=== PATIENT | female | born 1985 ===

== ENCOUNTER 2017-05-07 08:32 | Emergency (ER) | payer OTHER ==
[2017-05-07 08:38] VITALS: RESP 20; O2SAT 100
--- NOTE | 2017-05-07 09:42 | C.PDOC ---
History Of Present Illness 32 year old female presents to the ED c/o throat pain, earache and fever for the past week. Patient reports she had tonsillectomy 2 years ago in the [place]. Patient states she took diclofenac for her symptoms. Patient denies nausea, vomit, diarrhea, cough, recent travel, sick contacts. Time Seen by Provider: 05/07/17 08:57 Chief Complaint (Nursing): ENT Problem History Per: Patient History/Exam Limitations: None Onset/Duration Of Symptoms: Days Current Symptoms Are (Timing): Still Present Quality (Mouth/Throat): Tenderness Anticoagulant/Antiplatlet Use?: No Recent Aspirin Use: No Past Medical History Reviewed: Historical Data, Nursing Documentation, Vital Signs Vital Signs: Last Vital Signs Temp 100.3 F H 05/07/17 08:35 Pulse 113 H 05/07/17 08:35 Resp 20 05/07/17 08:35 BP 99/64 L 05/07/17 08:35 Pulse Ox 100 05/07/17 09:50 - Medical History PMH: No Chronic Diseases Surgical History: Tonsillectomy Family History: States: Unknown Family Hx - Social History Hx Alcohol Use: Yes Hx Substance Use: No - Immunization History Hx Tetanus Toxoid Vaccination: No Hx Influenza Vaccination: No Hx Pneumococcal Vaccination: No Review Of Systems Constitutional: Positive for: Fever. Negative for: Chills ENT: Positive for: Throat Pain. Negative for: Throat Swelling Cardiovascular: Negative for: Chest Pain Respiratory: Negative for: Cough, Shortness of Breath Gastrointestinal: Negative for: Nausea, Vomiting, Abdominal Pain Skin: Negative for: Rash Neurological: Negative for: Weakness, Numbness Physical Exam - Physical Exam Appears: Non-toxic, No Acute Distress Skin: Normal Color, Warm, Dry, No Rash Head: Atraumatic, Normacephalic Eye(s): bilateral: Normal Inspection, PERRL, EOMI Ear(s): Bilateral: Normal Nose: No Discharge Oral Mucosa: Moist Throat: Erythema (moderate), No Exudate Neck: Normal ROM, Supple Lymphatic: Adenopathy (anterior cervical ) Chest: Symmetrical, No Tenderness Cardiovascular: Rhythm Regular, No Friction Rub, No Murmur Respiratory: Normal Breath Sounds, No Rales, No Rhonchi, No Wheezing Gastrointestinal/Abdominal: Soft, No Tenderness, No Guarding, No Rebound Back: Normal Inspection, No CVA Tenderness Extremity: Normal ROM, No Tenderness, No Swelling Neurological/Psych: Oriented x3 Gait: Steady ED Course And Treatment O2 Sat by Pulse Oximetry: 100 (On RA) Pulse Ox Interpretation: Normal Medical Decision Making Medical Decision Making: Old records reviewed, no prior visits. Plan: * Amoxicillin 500 mg PO * Tylenol 975 mg PO Will treat for strep pharyngitis based on [facility] criteria. Disposition - Disposition Referrals: Maria D Castillo MD [Medical Doctor] - Disposition: HOME/ ROUTINE Disposition Time: 09:50 Condition: FAIR Additional Instructions: Follow up with the medical doctor within 1-2 days. Return if worsened. Prescriptions: Acetaminophen [Tylenol] 325 mg PO Q6 PRN #30 tab PRN Reason: Fever >100.4 F Amoxicillin [Amoxil 500 mg Cap] 500 mg PO TID #29 cap Instructions: Strep Throat (DC) Forms: Cask (Persian) Print Language: LATVIAN - Clinical Impression Clinical Impression: Pharyngitis - PA / SAND DIGGER / Resident Statement MD/DO has reviewed & agrees with the documentation as recorded. - Scribe Statement The provider has reviewed the documentation as recorded by the Scribe Mike Melara All medical record entries made by the Scribblanca were at my direction and personally dictated by me. I have reviewed the chart and agree that the record accurately reflects my personal performance of the history, physical exam, medical decision making, and the department course for this patient. I have also personally directed, reviewed, and agree with the discharge instructions and disposition.
[2017-05-07 10:10] VITALS: BP 104/68; PULSE 98; TEMP 99
== END 2017-05-07 10:10 | disposition home or self-care (01) ==
LOC: C.ER 08:32
DX: J02.9 Acute pharyngitis, unspecified (principal)